=== PATIENT | male | born 1955 | race Two or more races ===

== ENCOUNTER 2020-08-14 07:36 | Emergency (ER) | payer OTHER ==
[~2020-08-14] VITALS: Ht 172.7 cm; Wt 102.1 kg
[2020-08-14] MEDS ORDERED: TENORMIN100 M1 PO (07:59)
[2020-08-14] MEDS ORDERED: NORFLEX100MG PO (11:43)
[2020-08-14] MEDS ORDERED: PERCOCET 5-3251 EACH PO (11:43)
== END 2020-08-14 11:53 | disposition home or self-care (01) ==
LOC: ER 07:36
DX: M54.2 Cervicalgia (principal); M54.5 Low back pain; M54.6 Pain in thoracic spine; Z20.828 Contact with and (suspected) exposure to other viral communicable diseases

== ENCOUNTER 2020-12-19 09:00 | Outpatient (CLI) | payer OTHER ==
[~2020-12-19 09:00] MED LIST: NORFLEX100MG PO; PERCOCET 5-3251 EACH PO; TENORMIN100 M1 PO
== END 2020-12-19 09:06 | disposition home or self-care (01) ==
LOC: RAD 09:00
PROVIDERS: ATTEND Internal Medicine
DX: M15.9 Polyosteoarthritis, unspecified (principal); M54.40 Lumbago with sciatica, unspecified side

== ENCOUNTER 2021-05-05 08:03 | Outpatient (CLI) | payer OTHER | END 2021-05-05 08:14 | disposition home or self-care (01) | LOC: SONOGRAMA 08:03 | PROVIDERS: ATTEND Internal Medicine Gastroenterology | DX: N20.0 Calculus of kidney (principal); K76.0 Fatty (change of) liver, not elsewhere classified; R10.13 Epigastric pain ==

== ENCOUNTER 2021-07-19 13:19 | Emergency (ER) | payer OTHER ==
[~2021-07-19] VITALS: Ht 172.7 cm; Wt 95.3 kg
== END 2021-07-19 20:08 | disposition home or self-care (01) ==
LOC: ER 13:19
DX: N23 Unspecified renal colic (principal); M54.89 Other dorsalgia; N20.0 Calculus of kidney

== ENCOUNTER 2021-10-22 10:01 | Outpatient (CLI) | payer OTHER | END 2021-10-22 10:09 | disposition home or self-care (01) | LOC: RAD 10:01 | PROVIDERS: ATTEND Internal Medicine | DX: M25.559 Pain in unspecified hip (principal) ==

== ENCOUNTER 2022-01-29 10:54 | Outpatient (CLI) | payer OTHER | END 2022-01-29 10:55 | disposition home or self-care (01) | LOC: NUCLEAR 10:54 | PROVIDERS: ATTEND Internal Medicine | DX: M81.0 Age-related osteoporosis without current pathological fracture (principal) ==

== ENCOUNTER → 2022-10-27 | Outpatient (CLI) | payer OTHER | END | disposition home or self-care (01) | LOC: RAD 11:59 | PROVIDERS: ATTEND Internal Medicine | DX: N20.0 Calculus of kidney (principal) ==

== ENCOUNTER 2022-11-03 12:44 | Outpatient (CLI) | payer OTHER | END 2022-11-03 12:47 | disposition home or self-care (01) | LOC: NUCLEAR 12:44 | PROVIDERS: ATTEND Urology | DX: N20.0 Calculus of kidney (principal) | CPT/HCPCS: 78708; A9539; J1940 ==

== ENCOUNTER 2023-03-29 10:40 | Outpatient (CLI) | payer OTHER | END 2023-03-29 10:44 | disposition home or self-care (01) | LOC: RAD 10:40 | DX: M54.9 Dorsalgia, unspecified (principal); M25.559 Pain in unspecified hip ==

== ENCOUNTER 2024-12-04 08:15 | Outpatient (CLI) | payer OTHER | END 2024-12-04 08:19 | disposition home or self-care (01) | LOC: SONOGRAMA 08:15 | PROVIDERS: ATTEND Internal Medicine Endocrinology, Diabetes & Metabolism | DX: E04.1 Nontoxic single thyroid nodule (principal); K75.81 Nonalcoholic steatohepatitis (NASH); R74.01 Elevation of levels of liver transaminase levels ==